=== PATIENT | female | born 1965 | race Caucasian/White ===

== ENCOUNTER 2018-01-20 08:00 | Outpatient (CLI) | payer BC | END 2018-01-20 09:00 | disposition home or self-care (01) | LOC: D.MAMMO 08:00 | DX: Z12.31 Encounter for screening mammogram for malignant neoplasm of breast (principal) ==

== ENCOUNTER 2020-10-15 17:21 | Outpatient (CLI) | payer BC | END 2020-10-15 23:59 | disposition home or self-care (01) | LOC: D.MAMMO 17:21 | PROVIDERS: ATTEND Family Medicine | DX: Z12.31 Encounter for screening mammogram for malignant neoplasm of breast (principal) ==